=== PATIENT | female | born 1945 | race Caucasian/White ===

== ENCOUNTER 2016-06-20 03:46 | Observation (INO) | payer MEDICARE ==
[2016-06-20] VITALS (12 sets, daily range): BP systolic 98–147; BP diastolic 40–77; PULSE 62–78; RESP 16–20; O2SAT 91–96
[~2016-06-20] VITALS: Ht 160 cm; Wt 75.0 kg
--- NOTE | 2016-06-20 04:01 | ED.REPORT ---
HPI-Abd Pain F 40 and Over Date of Service Jun 20, 2016 ED Provider: Dr. Jermaine Alicia M.D. A 70 year old female with a history of ovarian cancer presents to the ED with hematemesis (x6) onset 1999 yesterday. The patient also reports diffuse abdominal pain. She has been taking medication for her cancer that sometimes affects her stomach. The patient denies melena, hematochezia, or taking anticoagulants. She is here from [place], visiting her son. Nursing Notes Stated Complaint: VOMITING BLOOD Chief Complaint: Female Abdominal Pain Nursing Notes Reviewed: Yes Allergies: Uncoded Allergies: PENICILLIN (Allergy, Mild, Rash, 06/20/16) Scheduled Atorvastatin Calcium (Atorvastatin Calcium) 20 Mg Tablet 20 MG PO DAILY Hydrochlorothiazide (Hydrochlorothiazide) 25 Mg Tablet 25 MG PO DAILY Ipratropium/Albuterol Sulfate (Iprat-Albut 0.5-3(2.5) mg/3 mL Inhalant Soln) 3 Ml Ampul.neb 3 ML IH Q6 Letrozole (Letrozole) 2.5 Mg Tablet 2.5 MG PO DAILY Magnesium Oxide (Magnesium) 250 Mg Tablet 250 MG PO BID Montelukast (Montelukast) 10 Mg Tablet 10 MG PO DAILY Potassium Chloride ER (Klor-Con M20) 20 Meq Tablet 20 MEQ PO DAILY Propranolol ER (Inderal LA) 60 Mg Capsule 60 MG PO DAILY Scheduled PRN Albuterol HFA (Proair HFA) 8.5 Gm Hfa.aer.ad 2 PUFFS INHALATION PRN For Wheezing Fluticasone Propionate (Flovent HFA 220 mcg) 12 Gm Aer.w.adap 2 PUFFS INHALATION PRN For Wheezing General Time Seen by MD: 03:59 Chief Complaint Other (Hematemesis) Hx Obtained From: Patient Arrived By: Walk-in Sudden in Onset?: Yes Onset Occurred: 5 - 8 hours ago Symptom Duration: Since onset Location: : Diffuse Quality: Painful Severity: Current: Moderate Severity: Maximum: Moderate Associated with: Denies: Fever, Hematemesis Pertinent Negative: Relieved by nothing Recent Healthcare: No recent doctor visit Similar Sx Previous: No Past Medical History Past Medical History Ovarian cancer Past Surgical History PowerPort placement Smoking History Unknown if Ever Smoker Social History Lives in [place] Other Social History: From out of town, Visiting locally Ambulatory Status Independent Review of Systems Constitutional: Denies: Fever Respiratory: Denies: Non-productive cough, Shortness of breath GI: Reports: Abdominal pain, Hematemesis, Denies: Bloody/tarry stool, Hematochezia, Melena Complete sys rev & neg: except as marked. Physical Exam Vital Signs Vital Signs (First) Date Time Temp Pulse Resp B/P Pulse Ox O2 Delivery O2 Flow Rate FiO2 06/20/16 03:49 36.6 77 16 129/77 96 Room Air Initial VS: Reviewed, Vital signs normal Head / Eyes: Atraumatic, Normocephalic ENT: Conjunctiva normal, No scleral icterus Neck: Supple, Full range of motion Skin: Warm, Dry, No cyanosis Neurologic: Alert, Oriented, Nonfocal Psychiatric: Mood/affect normal, Behavior normal, Normal thought content General/Constitutional: Awake, Alert, No acute distress, Well hydrated Respiratory / Chest: Breath sounds NL, Breath sounds = bilat, No respiratory distress Cardiovascular: Heart rate NL, Regular rhythm, Heart sounds NL Lower Ext Edema: Positive: Left 1+ Trace edema in right leg Abdomen: Soft Tenderness/Guarding/Rebound: Positive: Tender epigastric (mild) Back: Full range of motion, No CVA tenderness Interpretation & Diagnostics Lab Results Interpretation Result Diagram: 06/20/16 0536 06/20/16 0420 Test 06/20/16 04:20 06/20/16 05:36 White Blood Count 10.8th/mm3 (3.8-10.1) Red Blood Count 4.66mil/mm3 (3.90-5.20) Mean Corpuscular Volume 92.3fL (81-100) Mean Corpuscular Hemoglobin 31.5pg (27.0-35.0) Mean Corpuscular Hemoglobin Concent 34.2% (32.0-37.0) Red Cell Distribution Width 11.9% (12.3-15.4) Platelet Count 214bil/L (150-400) Neutrophils (%) (Auto) 85.1% (40-74) Lymphocytes (%) (Auto) 5.1% (14-46) Monocytes (%) (Auto) 8.8% (4-12) Eosinophils (%) (Auto) 0.7% (0-5) Basophils (%) (Auto) 0.2% (0-3) Prothrombin Time 10.6sec (8.1-12.5) Prothromb Time International Ratio 0.99ratio Sodium Level 139mEq/L (134-144) Potassium Level 3.7mEq/L (3.5-5.2) Chloride Level 92mEq/L (97-108) Carbon Dioxide Level 31mmol/L (18-29) Blood Urea Nitrogen 22mg/dL (8-27) Creatinine 0.75mg/dL (0.57-1.00) Estimat Glomerular Filtration Rate 109mL/min (>59) Glucose Level 155mg/dL (60-99) Calcium Level 10.5mg/dL (8.5-10.1) Magnesium Level 1.7mg/dL (1.6-2.6) Total Bilirubin 1.2mg/dL (0.0-1.2) Aspartate Amino Transf (AST/SGOT) 24U/L (0-50) Alanine Aminotransferase (ALT/SGPT) 19U/L (0-32) Alkaline Phosphatase 112U/L (25-165) Troponin T 0.010ug/L (0.0-0.011) Total Protein 7.5g/dL (6.4-8.4) Albumin 4.1g/dL (3.4-5.0) Hemoglobin 13.6g/dL (12.0-15.6) Hematocrit 39.5% (35.0-46.0) Lab values outside NL range: no clinical significance. Lab Results Interpretation: Repeat H&H showed significant decrease. ECG Interpretation ECG Interpretation: Atrial flutter rate 65 Left ventricular hypertrophy Time: 04:26 Interpreted by: ED physician Re-Eval/Medical Decision Med Decision/Clinical Course 70-year-old female with upper GI bleeding last p.m., no further vomiting here in the emergency room. Her vital signs have remained stable even with orthostatic testing. Her H&H however drop significantly. Her case was discussed with Dr. Hinton (gastroenterology) and Dr. Ocampo (hospitalist). She will be admitted to the hospitalist service for further evaluation. Re-Evaluation/Progress #1: Time of Eval: 05:17 Patient Status: Condition improved Re-Evaluation/Progress Note: Patient has not vomited in ED. Discussed plans for orthostatic vital signs and repeat labs. Patient agrees with plan for care and all questions were addressed. Re-Evaluation/Progress #2: Time of Eval: 06:31 Patient Status: Condition improved Re-Evaluation/Progress Note: Discussed with patient lab results, diagnosis, and plan for admit. Patient agrees with plan for care and all questions were addressed. Consultation #1: Referral / Consult Name: Aung Ocampo MD Consulted With: Hospitalist Call Returned at: 06:28 [employer] Pest Control Specialist: Agrees with eval, Agrees with plan, Accepts admit Consultation #2: Referral / Consult Name: Alden Hinton MD Call Returned at: 06:32 C[employer] Pest Control Specialist: Will see patient, Agrees with eval, Agrees with plan Note: GI Counseled Regarding: Diagnosis, Lab results, Need for admission Discharge & Departure Primary Impression: Upper GI bleed Disposition: ADMITTED TO HOSPITAL Discharge Condition All VS Reviewed: Yes Condition: Stable Referrals: [facility] Attestation Portions of this note were transcribed by Sumi Bowman. I, Dr. Alicia, personally performed the history, physical exam, and medical decision-making; I reviewed and confirmed the accuracy of the information in the transcribed note. Signed by: Krishna Lopez, 06/20/2016, 06:35 copies to: [facility] Jermaine Alicia MD Jun 20, 2016 04:01 SUMI BOWMAN Jun 20, 2016 04:14
[2016-06-20] MEDS ORDERED: 0.9% Sodium Chloride 1,000 ML IV ONE (04:08)
[2016-06-20] MEDS ORDERED: Pantoprazole Inj 80 MG, Pharmacy To Mix 1 EA in 0.9% Sodium Chloride 80 ML IV ONE ×2 (04:10)
[2016-06-20] MEDS ORDERED: Pantoprazole 4 mg/mL 10 mL Inj IVPUSH ONE (04:10)
[2016-06-20 04:31] LABS: BASOPHILS % (AUTO) 0.2 % (0-3); EOSINOPHILS % (AUTO) 0.7 % (0-5); MONOCYTES % (AUTO) 8.8 % (4-12); Mean Corpuscular Hemoglobin 31.5 pg (27.0-35.0); Mean Corpuscular Volume 92.3 fL (81-100); NEUTROPHILS % (AUTO) 85.1 % (40-74); Platelet Count 214 bil/L (150-400)
[2016-06-20 04:45] LABS: INR 0.99 ratio
[2016-06-20] MEDS ORDERED: ALBU8.5H2 INHALATION (04:48)
[2016-06-20] MEDS ORDERED: HYDR25TA4 PO (04:48)
[2016-06-20] MEDS ORDERED: MONT10TA23 PO (04:48)
[2016-06-20] MEDS ORDERED: ATOR20TA65 PO (04:48)
[2016-06-20] MEDS ORDERED: PROP60CA8 PO (04:48)
[2016-06-20] MEDS ORDERED: LETR2.5T4 PO (04:48)
[2016-06-20] MEDS ORDERED: POTA20TA7 PO (04:48)
[2016-06-20] MEDS ORDERED: IPRA3AMP IH (04:48)
[2016-06-20] MEDS ORDERED: MAGN250T29 PO (04:48)
[2016-06-20] MEDS ORDERED: FLUT12AE10 INHALATION (04:48)
[2016-06-20 04:53] LABS: TROPONIN T 0.01 ug/L (0.0-0.011)
[2016-06-20 05:05] LABS: Magnesium 1.7 mg/dL (1.6-2.6)
[2016-06-20] MEDS ORDERED: Ondansetron 2 mg/mL 2 mL Inj IVPUSH PRN (06:40)
--- NOTE | 2016-06-20 08:29 | CONS ---
[address] [address] CONSULTATION REPORT PATIENT: VASU CONNER : 1945 MR#: [id number] ADMIT: 06/20/2016 JOB ID: [id number] DATE OF SERVICE: 06/20/2016 GASTROENTEROLOGY CONSULTATION: REASON FOR CONSULTATION: Hematemesis. HISTORY OF PRESENT ILLNESS: This is a pleasant 70-year-old female with known history of asthma, ovarian cancer, managed at [facility] who presents here with hematemesis x6 episodes. The patient states that she had hematemesis x1 day when she vomited six episodes of bright red blood approximately one year ago. The patient does have a history of ibuprofen use in which she takes one pill per day for the past one month. The patient never had an EGD but had a colonoscopy five years ago which was normal. I have no records. The patient denies family history of colon cancer, inflammatory bowel disease or celiac disease. The patient denies melena, rectal bleeding, nausea or vomiting, change in bowel habits, or unintentional weight loss. The patient states she does have epigastric pain. PAST MEDICAL HISTORY: As stated above. PAST SURGERIES: Power port placement. ALLERGIES: PENICILLIN. MEDICATIONS AT HOME: Atorvastatin, hydrochlorothiazide, ibuprofen, ipratropium, albuterol, letrozole, magnesium, Montelukast, Klor-Con, Inderal. SOCIAL HISTORY: Denies smoking, alcohol or drugs. FAMILY HISTORY: Negative for colon cancer, inflammatory bowel disease or celiac disease. REVIEW OF SYSTEMS: The patient denies headache, blurred vision, nausea, vomiting, chest pain, shortness of breath, . No skin rash or joint pain. PHYSICAL EXAMINATION: Vital signs upon presentation: Temperature is 36.6, pulse is 67, respiratory rate 16, blood pressure 124/48, satting 95% room air. General: In no acute distress. Had no scars. Eyes anicteric. Throat supple. Lungs: Clear to auscultation bilaterally. Heart: Regular rhythm and rate. Abdomen: Soft, nondistended. Positive epigastric pain upon palpation. Normoactive BS. Extremities: No cyanosis, clubbing or edema. LABORATORIES: White count 10.0, hemoglobin 14.7, hematocrit 43, platelet count of 214. Chemistry shows sodium 139, potassium 3.7, chloride 92, bicarbonate 31, BUN 22, creatinine 0.7, glucose 155. Calcium 10.5, magnesium 1.7. Total bili is 1.2. AST 24, ALT 19, alk phos 112. Troponin is negative. Total protein 7.4, albumin 4.1. PT 10.6, INR of 0.99. ASSESSMENT AND PLAN: This is a 30-year-old female with a history of ovarian cancer, asthma presents with hematemesis x1 day. The patient does have a history of NSAID use. Differential diagnosis includes peptic ulcer disease versus gastritis versus esophagitis versus duodenitis. The patient also has epigastric pain which she may have an ulcer. RECOMMENDATIONS: 1. N.p.o. except for medications. 2. Abdominal ultrasound. 3. Please check amylase and lipase for pancreatitis. 4. Upper endoscopy with conscious sedation today. 5. Continue Protonix drip.
[2016-06-20] MEDS: Dextrose 5% 0.45% NaCl 1,000 ML IV SCH ×2 (10:08→16:40)
[2016-06-20] MEDS ORDERED: Propranolol LA 60 mg ER24 Capsule PO SCH (10:35)
[2016-06-20] MEDS ORDERED: Pantoprazole Inj 80 MG in 0.9% Sodium Chloride 80 ML IV SCH (10:40)
[2016-06-20 10:53] LABS: Lipase 27 U/L (13-60)
[2016-06-20] MEDS ORDERED: fentaNYL-PF 50 mCg/mL 2 mL Inj IVPUSH PRN (12:50)
--- NOTE | 2016-06-20 13:00 | DRSVH ---
PROCEDURE: US ABDOMEN INDICATIONS: abd pain, UGIB TECHNIQUE: Real-time scanning was performed of the abdominal and retroperitoneal organs, with image documentatio n. COMPARISON: None. FINDINGS: Liver length: 13.39 cm CHD: 7.90 mm CBD: 2.90 mm Spleen length: 9.25 cm Right kidney length: 10.84 cm Left kidney length: 11.60 cm Aorta(Proximal): 2.36 cm Aorta(Mid): 1.71 cm Aorta(Distal): 1.67 cm RCIA: Not well-seen LCIA: Not well-seen Liver: Liver is normal in size. Hepatic steatosis is noted. Gallbladder: Gallbladder has been removed. Biliary ducts: Intrahepatic bile ducts are non-dilated. Extrahepatic bile duct caliber is normal. Normal is 6-7 mm or less in diameter, or 10 mm or less post-cholecystectomy. Pancreas: Visualized portions of the pancreas are sonographically normal. Spleen: Spleen is normal in size and homogeneous in echotexture. Kidneys: Kidneys are normal in size and echotexture. No hydronephrosis or nephrolithiasis. No rivas d masses. Aorta: Visualized aorta is normal in caliber at less than 3 cm. Iliacs: Proximal common iliac arteries are normal in caliber at less than 2.5 cm. IVC: Intrahepatic inferior vena cava is patent. Miscellaneous: No free abdominal fluid. IMPRESSION: 1. Cholecystectomy. 2. Hepatic steatosis. Dictated by: Nighat Liriano M.D. on 06/20/2016 at 12:59 Approved by: Nighat Liriano M.D. on 06/20/2016 at 12:59
[2016-06-20] MEDS: 0.9% Sodium Chloride 1,000 ML IV SCH ×2 (13:05→15:41)
--- NOTE | 2016-06-20 13:22 | ENDO ---
[address] [address] ENDOSCOPY PROCEDURE PATIENT: VASU CONNER : 1945 MR#: [id number] ADMIT: 06/20/2016 JOB ID: [id number] DATE: 06/20/2016 PROCEDURE: Esophagogastroduodenoscopy. PREOPERATIVE DIAGNOSIS(ES): Hematemesis. POSTOPERATIVE DIAGNOSIS(ES): Normal upper endoscopy. ANESTHESIA: 1. Fentanyl 75 mcg. 2. Versed 2 mg IV administered. BLOOD LOSS: Minimal. DESCRIPTION OF PROCEDURE: After risks and benefits were explained to the patient, informed consent was obtained. After anesthesia administered, an upper endoscope was inserted into the mouth, intubated into the esophagus, stomach, second portion of duodenum. Mucosa carefully examined. After procedure was done, the scope withdrawn and procedure terminated. FINDINGS: Upon inspection of the esophagus, the esophagus was normal without masses, ulcers, or lesions. Z-line located at 40 cm from incisors. Upon entering the stomach, the stomach was also normal without masses, ulcers, or lesions. Retroflexion was normal. Duodenal bulb, first and second portion were normal and no biopsies were taken. IMPRESSION: Normal upper endoscopy. RECOMMENDATIONS: 1. Okay to discharge home today. 2. Followup with her primary care doctor.
--- NOTE | 2016-06-20 14:03 | PCM.HPMED ---
Subjective Date of Service Jun 20, 2016 Primary Provider: Admitting Physician: Aung Ocampo MD Primary Care Physician: Rafal Attending Physician: Aung Ocampo MD Admit Status: From the Emergency Department, Admit to [place] Team Chief Complaint: Hematemesis History of Present Illness: Ms. Anya Katz is a pleasant 70 year old woman with history of ovarian cancer , and asthma, that presented to [facility] with a one-day history of hematemesis and associated epigastric pain. She was admitted for evaluation and treatment for suspected upper GI bleeding. She states that she is visiting her son and family from [place], and starting the day prior to admission, she began feeling nauseated, and developed vomiting. Denies any associated fever, chills. It was not until later repeated episodes that family saw the vomitus and noticed the presence of blood. Admits to increased use of ibuprofen over the course of the recent month, approximately 1-2 tabs daily, to control arthritic pains. She denies any history of similar episodes. At the time of initial interview, she denied any recent dark stools, and diarrhea. States she has had previous colonoscopies without any known abnormalities; and has never received an EGD. Denies any family history of known colon cancer. Her ovarian cancer has been managed by [facility], and she is currently on a hormone therapy. Her port access is still in place. Denies any associated fever, chills, diaphoresis. In the ED, GI was urgently contacted, and kindly agreed to consult, with plans for urgent EGD. Initial labs revealed WBC 10.8, Hb 14.7, Hct 43.0. Amylase 94, lipase 27. Abdominal US revealed hepatitis steatosis. Vitals stable with T36.6, P77, R16, BP 129/77, 96% room air. Patient was transferred to [facility] in stable condition. Review of Systems: Complete ROS obtained; pertinent positives and negatives as in HPI Allergies Coded Allergies: Penicillins (Unverified Allergy, Mild, 06/20/16) FROM UNCODED Uncoded Allergies: PENICILLIN (Allergy, Mild, Rash, 06/20/16) Home Medications From reconciliation: Albuterol INH 2puffs prn SOB Atorvastatin 20mg daily HCTZ 25mg daily DuoNebs q6 Letrozole 2.5mg daily MgOx 250mg BID Montelukast 10mg daily KlorCon 20mEq daily Propranolol 60mg daily PMH Ovarian cancer Asthma Denies h/o colon cancer, HTN, hyperlipidemia, diabetes Surgical History Right sided port placement Cholecystectomy Family History Reports: Emphysema, coronary artery disease, breast cancer Social History Occupation: Retired Hx Alcohol Use: No Hx Substance Use: No Hx Tobacco Use: No Smoking Status: Never Smoker Living Arrangement: with Family (Visiting from [place]; staying with son) Exam Vital Signs Vital Sign - Last Date Time Temp Pulse Resp B/P Pulse Ox O2 Delivery O2 Flow Rate FiO2 06/20/16 13:14 64 16 106/50 91 Room Air 06/20/16 08:37 36.5 Intake and Output 06/19/16 06/19/16 06/20/16 Cumulative From/Thru 15:00 23:00 07:00 06/20/16 03:49 - 06/20/16 04:34 Intake Total 1000 ml 1000 ml Balance 1000 ml 1000 ml Intake IV Total 1000 ml 1000 ml Exam General: AAOx3, pleasant; cooperative HENT: Atraumatic; no conjunctival pallor; mucus membranes moist Neck: Soft, trachea midline Cardiac: Regular rate and rhythm; no murmurs appreciated Respiratory: Adequate air flow all [place]; no coarse sounds or wheeze Abdomen: Soft, mildly tender epigastric region; no organomegaly appreciated Extremities: No edema Neuro: CNII-XII grossly intact; speech normal; no facial asymmetry Psych: Appropriate mood, affect, and responses to questioning Lab and Diagnostics Result Diagram: 06/20/16 1220 06/20/16 0420 Assessment & Plan Ms. Anya Katz is a pleasant 70 year old woman with history of ovarian cancer , and asthma, that presented to [facility] with a one-day history of hematemesis and associated epigastric pain. She was admitted for evaluation and treatment for suspected upper GI bleeding. - Hospital day one Suspected UGIB, acute, present on admission. Resolved - Pt reported hematemesis x5 episodes prior to admission - H/H on admit: 14.7/43.0 - GI consulted in ED; kindly agreed to consult - Urgent EGD - Abdominal ultrasound - Amylase/lipase - H/H trend q6 - Protonix gtt Asthma, chronic. Stable - Duonebs q6 - Accunebs q2h prn History of ovarian cancer. Presumed stable - Continue therapies - PRN: Fever/pain/antiemetics/bowel - DVT: SCDs - GI: PPI - Diet: NPO - CODE: FULL CODE Patient status: Due to severity of presenting symptoms, risk of adverse events, and likely course of care, anticipated LOS < 2 midnights; pt admitted as OBS. No anticipated needs at this point. Will await results EGD for DC planning. Pain Evaluation: Adequate Pain Control GI Prophylaxis: Proton Pump Inhibitor VTE Prophylaxis: SCDs Resuscitation Status: CPR: Attempt Resuscitation Attending Statement The patient was seen and examined together with Dr. Childress on 06/20/2016 and I agree with the history, exam and plan as outlined in the note above. Tammy Childress DO Jun 20, 2016 14:03 Noah Wills MD Jun 20, 2016 15:48
--- NOTE | 2016-06-20 14:17 | PCM.DIMED ---
Discharge Instructions Date of Service Jun 20, 2016 Dates of Hospitalization Jun 20, 2016 at 06:49 Discharge Diagnosis Discharge Diagnosis Suspected upper gastrointestinal bleeding, acute, present on admission. Resolved Asthma, chronic. Stable Ovarian cancer, chronic. Presumed stable, on therapies Medication Instructions - STOP taking NSAIDs! - NSAIDs= Non-steroidal anti-inflammatory drugs - This is a large class of medications, including ibuprofen, and naproxen - Brands such as Advil, and Aleve - For many people, this medication can irritate your stomach - Please discuss with your primary care alternative therapies for your arthritic pain - No changes were made to your home medications. Please continue as directed by their prescriber. - No new medications were prescribed during this hospitalization Test Results - Your upper endoscopy did not reveal any source of bleeding - Your blood levels remained stable throughout your stay Diet Heart Healthy Activity No restrictions Call your provider Fever or Chills, Shortness of breath, Bleeding, Chest pain, Excessive diarrhea, Weakness (unilateral) Patient Instructions - Avoid NSAIDs! - Stay well hydrated. Increasing your daily water intake to 1-2L can help promote energy, decrease constipation, and prevent dehydration of tissues. Follow-up plan - Please follow up with your primary care as soon as you return to your hometown. At that visit, discuss - This hospitalization and your symptoms - Alternatives for your arthritic pain - If you again note blood in your emesis, please do not hesitate to seek emergent care. Your endoscopy, the scope, did not reveal any source of bleeding at this time. - No immediate follow up is required at this time Follow-up Provider: OTHER,PHYSICIAN Follow-up with PCP in: Other (Your PCP when you get home to [place]) Tammy Childress DO Jun 20, 2016 14:17
[2016-06-20] MEDS ORDERED: Albuterol-Ipratropium 3 mL Inhalation Solution NEB SCH (14:30)
--- NOTE | 2016-06-20 14:57 | NUR ---
Neb not given patient going home and in room said it was ok that she didn't need it.
--- NOTE | 2016-06-20 15:16 | NUR ---
Social Work: Initial Assessment / D/C Data: Pt is a 70 y/o female admitted for GI bleed. Pt's PCP is not listed, pt's insurance is Medicare with [employer] supp. EMR reviewed. CROTCH PIECE BASTER met with pt and son at bedside, role explained. Pt states she live in [place] and is visiting her son. She lives in a single story home where she uses a nebulizer and no other DME. Pt states that her son is a good support to contact if needed and that he is her DPOA, [employer]IECE BASTER requested a copy for hospital. Pt states she has no history of HH or SNF, no LTC or VA benefits, and she is not a caregiver for another. No further d/c planning needs identified. D/C orders are in. [employer]ER will continue to follow if needs arise. Assessment: Pt who is independent at baseline. Plan: Pt will d/c home via POV with son today. No further d/c planning needs identified. D/C orders are in. [employer]ER will continue to follow if needs arise. JULIA Paige Addendum: 06/20/16 at 1525 by BULMARO SCHAFER Amended: Links added.
--- NOTE | 2016-06-20 15:20 | NUR ---
Case Management: Observation Brochure provided and explained to patient and family at 1503, all questions answered. Kyra Aviles RN
[2016-06-20] MEDS ORDERED: Sodium Chloride LOK Flush 10 mL Syringe IV SCH (16:30)
--- NOTE | 2016-06-20 18:29 | NUR ---
Discharge Reviewed d/c instructions with pt including care notes, no new prescriptions, pt signed and given originals, copies to chart. IV d/c intact, tele removed. VS stable at time of d/c. All belongings packed by pt and son in room and taken with them. Pt taken off unit via WC by ASSISTANT FITNESS MANAGER to son waiting in car below to drive home.
--- NOTE | 2016-06-20 19:22 | PCM.DC.MED ---
Discharge Summary Date of Service Jun 20, 2016 Dates of Hospitalization Date of Hospital Admission Jun 20, 2016 at 06:49 Date of Discharge: Jun 20, 2016 Providers: Admitting Physician: Aung Ocampo MD Primary Care Physician: Rafal Attending Physician: Aung Ocampo MD Diagnosis at Time of Discharge Diagnosis at Time of Discharge Suspected upper gastrointestinal bleeding, acute, present on admission. Resolved Asthma, chronic. Stable Ovarian cancer, chronic. Presumed stable, on therapies Consultations Gastroenterology Procedures XRay, CTs & MRIs PROCEDURE: US ABDOMEN IMPRESSION: 1. Cholecystectomy. 2. Hepatic steatosis. Dictated by: Nighat Liriano M.D. on 06/20/2016 at 12:59 Approved by: Nighat Liriano M.D. on 06/20/2016 at 12:59 Other Diagnostics PROCEDURE: Esophagogastroduodenoscopy. FINDINGS: Upon inspection of the esophagus, the esophagus was normal without masses, ulcers, or lesions. Z-line located at 40 cm from incisors. Upon entering the stomach, the stomach was also normal without masses, ulcers, or lesions. Retroflexion was normal. Duodenal bulb, first and second portion were normal and no biopsies were taken. IMPRESSION: Normal upper endoscopy. Alden Hinton MD 06/20/16 1308 Brief History History obtained from admission note dated 06/20/2016, composed by Dr. Tammy Childress: Ms. Anya Katz is a pleasant 70 year old woman with history of ovarian cancer , and asthma, that presented to [facility] with a one-day history of hematemesis and associated epigastric pain. She was admitted for evaluation and treatment for suspected upper GI bleeding. She states that she is visiting her son and family from [place], and starting the day prior to admission, she began feeling nauseated, and developed vomiting. Denies any associated fever, chills. It was not until later repeated episodes that family saw the vomitus and noticed the presence of blood. Admits to increased use of ibuprofen over the course of the recent month, approximately 1-2 tabs daily, to control arthritic pains. She denies any history of similar episodes. At the time of initial interview, she denied any recent dark stools, and diarrhea. States she has had previous colonoscopies without any known abnormalities; and has never received an EGD. Denies any family history of known colon cancer. Her ovarian cancer has been managed by [facility], and she is currently on a hormone therapy. Her port access is still in place. Denies any associated fever, chills, diaphoresis. In the ED, GI was urgently contacted, and kindly agreed to consult, with plans for urgent EGD. Initial labs revealed WBC 10.8, Hb 14.7, Hct 43.0. Amylase 94, lipase 27. Abdominal US revealed hepatitis steatosis. Vitals stable with T36.6, P77, R16, BP 129/77, 96% room air. Patient was transferred to [facility] [place] in [place]. Hospital Course Ms. Anya Katz is a pleasant 70 year old woman with history of ovarian cancer , and asthma, that presented to [facility] with a one-day history of hematemesis and associated epigastric pain. She was admitted for evaluation and treatment for suspected upper GI bleeding. Gi was consulted through the ED, and they kindly agreed to consult. Urgent EGD was completed, which did not reveal any source of bleeding or any abnormalities. She tolerated dinner well, and was discharged home in stable condition. - Hospital day total: one Suspected UGIB, acute, present on admission. Resolved - Pt reported hematemesis x5 episodes prior to admission - H/H on admit: 14.7/43.0 - GI consulted in ED; kindly agreed to consult - Urgent EGD: Normal upper endoscopy - Abdominal ultrasound: - Amylase: 94; Lipase 27 - No new medications - Avoid NSAIDs Asthma, chronic. Stable - Resumed home medications History of ovarian cancer. Presumed stable - Continued therapies Exam Vital Signs (Last) Date Time Temp Pulse Resp B/P Pulse Ox O2 Delivery O2 Flow Rate FiO2 06/20/16 13:48 36.6 70 147/74 94 Room Air 06/20/16 13:34 16 Exam General: AAOx3, pleasant; cooperative HENT: Atraumatic; no conjunctival pallor; mucus membranes moist Neck: Soft, trachea midline Cardiac: Regular rate and rhythm; no murmurs appreciated Respiratory: Adequate air flow all [place]; no coarse sounds or wheeze Abdomen: Soft, mildly tender epigastric region; no organomegaly appreciated Extremities: No edema Neuro: CNII-XII grossly intact; speech normal; no facial asymmetry Psych: Appropriate mood, affect, and responses to questioning Test 06/20/16 04:20 06/20/16 17:37 White Blood Count 10.8th/mm3 (3.8-10.1) Red Blood Count 4.66mil/mm3 (3.90-5.20) Mean Corpuscular Volume 92.3fL (81-100) Mean Corpuscular Hemoglobin 31.5pg (27.0-35.0) Mean Corpuscular Hemoglobin Concent 34.2% (32.0-37.0) Red Cell Distribution Width 11.9% (12.3-15.4) Platelet Count 214bil/L (150-400) Neutrophils (%) (Auto) 85.1% (40-74) Lymphocytes (%) (Auto) 5.1% (14-46) Monocytes (%) (Auto) 8.8% (4-12) Eosinophils (%) (Auto) 0.7% (0-5) Basophils (%) (Auto) 0.2% (0-3) Prothrombin Time 10.6sec (8.1-12.5) Prothromb Time International Ratio 0.99ratio Sodium Level 139mEq/L (134-144) Potassium Level 3.7mEq/L (3.5-5.2) Chloride Level 92mEq/L (97-108) Carbon Dioxide Level 31mmol/L (18-29) Blood Urea Nitrogen 22mg/dL (8-27) Creatinine 0.75mg/dL (0.57-1.00) Estimat Glomerular Filtration Rate 109mL/min (>59) Glucose Level 155mg/dL (60-99) Calcium Level 10.5mg/dL (8.5-10.1) Magnesium Level 1.7mg/dL (1.6-2.6) Total Bilirubin 1.2mg/dL (0.0-1.2) Aspartate Amino Transf (AST/SGOT) 24U/L (0-50) Alanine Aminotransferase (ALT/SGPT) 19U/L (0-32) Alkaline Phosphatase 112U/L (25-165) Troponin T 0.010ug/L (0.0-0.011) Total Protein 7.5g/dL (6.4-8.4) Albumin 4.1g/dL (3.4-5.0) Amylase Level 94U/L (28-100) Lipase 27U/L (13-60) Hemoglobin 12.6g/dL (12.0-15.6) Hematocrit 37.6% (35.0-46.0) Discharge Medications Discharge Medications Atorvastatin Calcium (Atorvastatin Calcium) 20 Mg Tablet 20 MG PO DAILY ( Reported) Hydrochlorothiazide (Hydrochlorothiazide) 25 Mg Tablet 25 MG PO DAILY (Reported ) Ipratropium/Albuterol Sulfate (Iprat-Albut 0.5-3(2.5) mg/3 mL Inhalant Soln) 3 Ml Ampul.neb 3 ML IH Q6 (Reported) Letrozole (Letrozole) 2.5 Mg Tablet 2.5 MG PO DAILY (Reported) Magnesium Oxide (Magnesium) 250 Mg Tablet 250 MG PO BID (Reported) Montelukast (Montelukast) 10 Mg Tablet 10 MG PO DAILY (Reported) Potassium Chloride ER (Klor-Con M20) 20 Meq Tablet 20 MEQ PO DAILY (Reported) Propranolol ER (Inderal [place]) 60 Mg Capsule 60 MG PO DAILY (Reported) As needed Albuterol HFA (Proair HFA) 8.5 Gm Hfa.aer.ad 2 PUFFS INHALATION PRN For Wheezing (Reported) Fluticasone Propionate (Flovent HFA 220 mcg) 12 Gm Aer.w.adap 2 PUFFS INHALATION PRN For Wheezing (Reported) Additional med instructions - STOP taking NSAIDs! - NSAIDs= Non-steroidal anti-inflammatory drugs - This is a large class of medications, including ibuprofen, and naproxen - Brands such as Advil, and Aleve - For many people, this medication can irritate your stomach - Please discuss with your primary care alternative therapies for your arthritic pain - No changes were made to your home medications. Please continue as directed by their prescriber. - No new medications were prescribed during this hospitalization Followup Plan Disposition: Home Follow-up plan - Please follow up with your primary care as soon as you return to your hometown. At that visit, discuss - This hospitalization and your symptoms - Alternatives for your arthritic pain - If you again note blood in your emesis, please do not hesitate to seek emergent care. Your endoscopy, the scope, did not reveal any source of bleeding at this time. - No immediate follow up is required at this time Discharge Diet: Heart Healthy Discharge Activity: No restrictions Patient Instructions - Avoid NSAIDs! - Stay well hydrated. Increasing your daily water intake to 1-2L can help promote energy, decrease constipation, and prevent dehydration of tissues. Follow-up Provider: OTHER,PHYSICIAN Follow-up with PCP in: Other (Your PCP when you get home to [place]) Time spent 30 minutes Attending Statement The patient was seen and examined together with Dr. Childress on 06/20/2016 and I agree with the history, exam and plan as outlined in the note above. Tammy Childress DO Jun 20, 2016 19:22 Noah Wills MD Jun 21, 2016 10:20
[2016-06-21] MEDS ORDERED: Potassium Chloride 20 mEq SR Tablet PO SCH (08:30)
== END 2016-06-20 18:31 | disposition home or self-care (01) ==
LOC: SED 03:46 → INTOOBSV 06:49 → MPC 06:49
PROVIDERS: ADMIT Internal Medicine; ATTEND Family Medicine
DX: K92.0 Hematemesis (principal); R10.9 Unspecified abdominal pain; J45.909 Unspecified asthma, uncomplicated; C56.9 Malignant neoplasm of unspecified ovary
CPT/HCPCS: 36415; 43235; 76700; 80053; 82150; 83690; 83735; 84484; 85014; 85018; 85025; 85610; 93005; 96374; 99285; G0378; G0500; J2250; J7030; J7042